=== PATIENT | female | born 1995 | race Caucasian/White ===

== ENCOUNTER 2017-10-22 12:58 | Emergency (ER) | payer SELFPAY ==
[~2017-10-22] VITALS: Ht 160 cm; Wt 48.5 kg
[~2017-10-22 12:58] MED LIST: PROZAC10 M1 PO
[2017-10-22 14:24] LABS: BILIRUBIN NEGATIVE (NEGATIVE); BLOOD TRACE-INTACT (NEGATIVE); CLARITY SL CLOUDY (CLEAR); COLOR ORANGE (YELLOW); GLUCOSE TRACE (NEGATIVE); KETONE NEGATIVE (NEGATIVE); LEUKO ESTERASE 2+ (NEGATIVE); NITRITE POSITIVE (NEGATIVE); PH 6.5 (5.0-9.0); SPECIFIC GRAVITY <= 1.005 (1.005-1.030)
[2017-10-22 14:39] LABS: EPITHELIAL CELLS TNTC
[2017-10-22 14:40] LABS: BACTERIA 1+; WBC TNTC wbc/hpf (0-5)
[2017-10-22] MEDS ORDERED: SEPTDS PO (14:44)
[2017-10-22] MEDS ORDERED: PYRIDIUM100 MG PO (14:44)
== END 2017-10-22 14:55 | disposition home or self-care (01) ==
LOC: ED 12:58
PROVIDERS: Nurse Practitioner Family
DX: N39.0 Urinary tract infection, site not specified (principal); Z88.1 Allergy status to other antibiotic agents; Z98.51 Tubal ligation status; Z88.5 Allergy status to narcotic agent

== ENCOUNTER 2024-11-27 18:31 | Emergency (ER) | payer SELFPAY ==
[~2024-11-27] VITALS: Ht 160 cm; Wt 52.6 kg
[~2024-11-27 18:31] MED LIST changes: +PYRIDIUM100 MG PO; +SEPTDS PO
[2024-11-27] MEDS ORDERED: predniSONE 20 MG TAB PO ONE (18:50)
[2024-11-27] MEDS ORDERED: LEVOFLOXACIN 750 MG TAB PO ONE (18:50)
[2024-11-27] MEDS ORDERED: LEVOFLOXACIN750 M2 PO (18:52)
[2024-11-27] MEDS ORDERED: PREDNISONE20 M1 PO (18:52)
[2024-11-27] MEDS ORDERED: VENT7GM INH (18:52)
== END 2024-11-27 18:56 | disposition home or self-care (01) ==
LOC: ED 18:31
DX: J18.9 Pneumonia, unspecified organism (principal); F17.290 Nicotine dependence, other tobacco product, uncomplicated; Z88.1 Allergy status to other antibiotic agents; Z88.5 Allergy status to narcotic agent

== ENCOUNTER 2025-03-18 19:48 | Emergency (ER) | payer SELFPAY ==
[~2025-03-18 19:48] MED LIST changes: +LEVOFLOXACIN750 M2 PO; +PREDNISONE20 M1 PO; +VENT7GM INH
[2025-03-18] MEDS ORDERED: SODIUM CHLORIDE 0.9% 1,000 ML IV ONE (20:40)
[2025-03-18] MEDS ORDERED: AZITHROMYCIN 250 MG TAB PO ONE (23:45)
[2025-03-18] MEDS ORDERED: ZITHROMAX250 MG PO (23:53)
[2025-03-19] MEDS ORDERED: VENT7GM INH (00:09)
== END 2025-03-19 00:01 | disposition home or self-care (01) ==
LOC: ED 19:48
DX: J10.1 Influenza due to other identified influenza virus with other respiratory manifestations (principal); Z20.822 Contact with and (suspected) exposure to COVID-19; Z88.1 Allergy status to other antibiotic agents; Z88.5 Allergy status to narcotic agent; Z87.440 Personal history of urinary (tract) infections